=== PATIENT | male | born 1950 | race Asian ===

== ENCOUNTER 2019-01-27 09:52 | Emergency (ER) | payer MEDICARE, BC ==
[2019-01-27 13:53] LABS: ADD MAN DIFF? NO
[2019-01-27 14:01] LABS: WHITE BLOOD COUNT 7.8 10^3/ul (4.8-10.8)
[2019-01-27 14:01] LABS: BASOPHILS % 0.4 % (0.0-2.0); EOSINOPHILS # 0.1 10^3/ul (0.0-0.5); EOSINOPHILS % 1.2 % (0.0-7.0); HEMATOCRIT 43.1 % (42.0-52.0); HEMOGLOBIN 14.5 g/dl (14.0-18.0); LYMPHOCYTES % 25.8 % (15.0-51.0); MEAN CORPUSCULAR HEMOGLOBIN 28.1 pg (29.0-33.0); MEAN CORPUSCULAR HGB CONC 33.6 g/dl (32.0-37.0); MEAN CORPUSCULAR VOLUME 83.5 fl (82.0-101.0); MEAN PLATELET VOLUME 9.2 fl (7.4-10.4); MONOCYTE # 0.8 10^3/ul (0.3-0.9); MONOCYTES % 9.7 % (0.0-11.0); NEUTROPHIL # 4.8 10^3/ul (1.6-7.5); PLATELET COUNT 190 10^3/UL (140-415); RED BLOOD COUNT 5.16 10^6/ul (4.70-6.10); RED CELL DISTRIBUTION WIDTH 11.9 % (11.5-14.5)
[2019-01-27 14:22] LABS: ANION GAP 6 (5-13); BLOOD UREA NITROGEN 17 mg/dl (7-20); CALCIUM 9.9 mg/dl (8.4-10.2); CARBON DIOXIDE 28 mmol/L (21-31); CHLORIDE 106 mmol/L (97-110); CREATININE 0.71 mg/dl (0.61-1.24); Estimated GFR > 60 mL/min (>60); GLUCOSE 103 mg/dl (70-220); SODIUM 140 mmol/L (135-144)
[2019-01-27 14:28] LABS: POTASSIUM 5.3 mmol/L (3.5-5.1)
[2019-01-27 14:30] LABS: TROPONIN-I < 0.012 ng/ml (0.000-0.120)
[2019-01-27 15:32] LABS: POTASSIUM 4.5 mmol/L (3.5-5.1)
== END 2019-01-27 16:23 | disposition home or self-care (01) ==
LOC: E/R 09:52
DX: R00.2 Palpitations (principal)
CPT/HCPCS: 36415; 71045; 80048; 84132; 84484; 85025; 93005; 99285-25